=== PATIENT | female | born 1945 | race Caucasian/White ===

== ENCOUNTER 2016-07-06 21:03 | Emergency (ER) | payer MEDICARE, OTHER ==
[~2016-07-06] VITALS: Ht 167.6 cm; Wt 102.0 kg
[~2016-07-06 21:03] MED LIST: ASPI81TA82 PO; CEPH500C3 PO; LASI20TA PO; LISI-357 PO; MAGN400C2 PO; METO100T9 PO; SIMV40 PO; XANA0.5T PO; ZEGE20CA PO
[2016-07-06 21:15] VITALS: BP 105/79; PULSE 93; RESP 20; TEMP 98.3; O2SAT 93
[2016-07-06] MEDS ORDERED: SIMV40TA PO (21:26)
[2016-07-06] MEDS ORDERED: MAGN400T2 PO (21:26)
[2016-07-06] MEDS ORDERED: ASPI81CH37 CHEW (21:26)
[2016-07-06] MEDS ORDERED: ALPR.5 PO (21:26)
[2016-07-06] MEDS ORDERED: METO50TA11 PO (21:26)
[2016-07-06] MEDS ORDERED: LISI-519 PO (21:26)
[2016-07-06] MEDS ORDERED: OMEP20TA PO (21:26)
[2016-07-06] MEDS ORDERED: FURO1TAB62 PO (21:26)
[2016-07-06] MEDS ORDERED: KETOROLAC TROMETHAMINE 60 MG/2 ML (IM) VIAL IM ONE (21:30)
--- NOTE | 2016-07-06 21:36 | PD ---
HPI Chief Complaint: Fall Time Seen by Provider: 21:30 Travel History International Travel<30 days: Yes Contact w/Intl Traveler<30days: Yes Name of Country Traveled to: [place] Traveled to known affect area: No History of Present Illness HPI 70-year-old female that presents to the ED for evaluation of fall today. Per patient she tripped and fell in the house. Per patient she landed on her head and in her right knee. She was able to ambulate afterwards with some limping. Per patient she was concerned because she's been having more and more difficulty with movement of the right knee. Per patient she does have a little swelling. She does have a history of a ligamental surgical repair years ago. She states that the pain is mostly on the right knee. She takes aspirin. She did not lose consciousness. She does have an abrasion to her left eye. No blurry vision or double vision. Per patient the pain is 5 out of 10. She has no allergies to medication. She has not seen anybody for this. Injury occurred about 4-5 hours ago. Family is concerned because she wasn't able to walk as well after this. Denies any back pain or neck pain. No injuries to the left upper or lower extremity. No injuries to the right upper extremity. No hip pain. PFSH Past Medical History Heart Rhythm Problems: Yes Cardiovascular Problems: Yes (chf) High Cholesterol: Yes Congestive Heart Failure: Yes Hypertension: Yes Musculoskeletal: Yes (right knee) Tetanus Vaccination: > 5 Years Influenza Vaccination: Yes ?: Not Social History Alcohol Use: Yes Tobacco Use: No (former) Substance Use: No Allergies-Medications (Allergen,Severity, Reaction): Coded Allergies: No Known Allergies (Unverified , 07/06/16) Reported Meds & Prescriptions Reported Meds & Active Scripts Active Walker Rolling/GetGo (Device) 1 Mis Mis 1 Ea .ROUTE DIRECTED Diclofenac Sodium DR (Diclofenac Sodium) 75 Mg Tabdr 75 Mg PO BID PRN Reported Simvastatin 40 Mg Tab 40 Mg PO HS Omeprazole 20 Mg Tab 20 Mg PO DAILY Metoprolol Succinate ER 24 HR (Metoprolol Succinate) 50 Mg Tab 75 Mg PO BID Lisinopril 5 Mg Tab 5 Mg PO DAILY Magnesium Oxide 400 Mg Tab 400 Mg PO DIRECTED Lasix (Furosemide) 20 Mg Tab 20 Mg PO DAILY Aspirin Low Dose (Aspirin) 81 Mg Chew 81 Mg CHEW DAILY Xanax (Alprazolam) 0.5 Mg Tab 0.5 Mg PO BID PRN Review of Systems Except as stated in HPI: all other systems reviewed are Neg Physical Exam Narrative GENERAL: SKIN: Warm and dry. HEAD: Atraumatic. Normocephalic. EYES: Pupils equal and round 4 mm reactive to light and accommodation. No scleral icterus. No injection or drainage. ENT: No nasal bleeding or discharge. Mucous membranes pink and moist. Tongue is midline. No uvula deviation. NECK: Trachea midline. No JVD. CARDIOVASCULAR: Regular rate and rhythm. No murmurs, S3, S4. RESPIRATORY: No accessory muscle use. Clear to auscultation. Breath sounds equal bilaterally. GASTROINTESTINAL: Abdomen soft, non-tender, nondistended. Hepatic and splenic margins not palpable. MUSCULOSKELETAL: Extremities without clubbing, cyanosis, or edema. No obvious deformities. Patient does have surgical scars noted on the right knee that appear to be old and healed. Patient does have significant swelling noted on the right knee compared to the left lung. Able to flex and extend it with minimal difficulty. Bruising noted especially on the lateral aspect of the knee. 2+ pulses bilaterally. Patient has no cervical, thoracic, lumbar spine tenderness to palpation. Full range of motion of the entire left lower and right upper extremities. Patient does have superficial abrasions to the left eyebrow and left cheek. Less than 1 cm in diameter. Patient has full range of motion of the ankle and feet bilaterally as well as the hips bilaterally. NEUROLOGICAL: Awake and alert. No obvious cranial nerve deficits. Motor grossly within normal limits. Five out of 5 muscle strength in the arms and legs. Normal speech. PSYCHIATRIC: Appropriate mood and affect; insight and judgment normal. Data Data Last Documented VS Vital Signs Date Time Temp Pulse Resp B/P Pulse Ox O2 Delivery O2 Flow Rate FiO2 07/06/16 21:27 07/06/16 21:15 [address] Brain W/O Iv Contrast(Rout) (07/06/16 21:24) Knee, Complete (4vws) (07/06/16 21:24) Ice/Cold Pack (07/06/16 21:24) Ketorolac Inj (Toradol Inj) (07/06/16 21:30) Splint Or Brace Apply/Monitor (07/06/16 22:04) [facility] Medical Decision Making Medical Screen Exam Complete: Yes Emergency Medical Condition: Yes Medical Record Reviewed: Yes Interpretation(s) Last Impressions Knee X-Ray 07/06/162123 Signed Impressions: Service Date/Time: Wednesday, July 06, 2016 21:39 - CONCLUSION: Large hematoma and no definite fracture. Aldo Dixon MD Head CT 07/06/162123 Signed Impressions: Service Date/Time: Wednesday, July 06, 2016 21:43 - CONCLUSION: Slight atrophic and small vessel ischemic changes without any evidence for acute hemorrhage or mass effect. Aldo Dixon MD Differential Diagnosis Fracture versus sprain versus strain versus contusion versus hematoma versus ligamental injury Narrative Course 70-year-old female that presents to the ED for evaluation of right knee pain as well as head injury after fall today. Patient was properly examined and was found to have signs and symptoms consistent with appears to be fall. X-rays and imaging ordered. X-rays and imaging showed large hematoma no surgery tenderness but no sign of acute disease. Case was discussed in my attending Dr. Aguilar . Agrees with plan. This time I recommend close follow with orthopedic surgeon. Ice or warm compresses. Patient was given a prescription for diclofenac sodium to help with the swelling. Patient was told that unfortunately this fluid will likely have to be absorbed by the body and this will take time. Patient was told to watch for signs of infection. Any worsening pain or swelling she is to come back. Close follow with orthopedic surgeon. See ED if worsening symptoms. Family agrees with plan Diagnosis Primary Impression: Traumatic hematoma of right knee Qualified Code: S80.01XA - Traumatic hematoma of right knee, initial encounter Additional Impression: Head injury Qualified Code: S09.90XA - Head injury, initial encounter Referrals: Ricky Rondon Jr., MD Patient Instructions: General Instructions Additional Instructions: Take medications as prescribed. Follow-up with PCP. See ED for any worsening symptoms. Do not drink or drive while taking pain medication. Apply ice or heat as needed for pain Med/Other Pt SpecificInfo: Prescription(s) given Scripts Walker Rolling/GetGo 1 Mis Mis #1 Ea .route As Directed Prov:Nas Oropeza MD 07/06/[address] 75 Mg Tabdr75 Mg PO BID PRN (PAIN SCALE 1 TO 10) #20 TAB Prov:Nas Oropeza MD 07/06/16 Disposition: 01 DISCHARGE HOME Condition: Stable Gary Abbott Jul 06, 2016 21:36
--- NOTE | 2016-07-06 21:57 | RADHPO ---
EXAM DATE/TIME: 07/06/2016 21:39 [facility] COMPARISON: No previous studies available for comparison. INDICATIONS : Right knee pain, fall today. MEDICAL HISTORY : None. SURGICAL HISTORY : None. ENCOUNTER: Initial ACUITY: 1 day PAIN SCORE: 6/10 LOCATION: Right knee. FINDINGS: No definite fractures, dislocations, lytic, or sclerotic lesions are seen. Slight tricompartment oste oarthritis is seen with a small joint effusion. Huge hematoma is present in the prepatellar location subcutaneous tissue measuring 9.8 cm in size. CONCLUSION: Large hematoma and no definite fracture. Aldo Dixon MD on July 06, 2016 at 21:55 Board Certified Radiologist. This report was verified electronically.
--- NOTE | 2016-07-06 21:59 | RADHPO ---
EXAM DATE/TIME: 07/06/2016 21:43 [facility] COMPARISON: No previous studies available for comparison. INDICATIONS : Fall with injury to head. RADIATION DOSE: 55.92 CTDIvol (mGy) MEDICAL HISTORY : Hypertension. Congestive heart failure. SURGICAL HISTORY : Pacemaker. ENCOUNTER: Initial ACUITY: 1 day PAIN SCALE: 2/10 LOCATION: Left frontal orbit. TECHNIQUE: Multiple contiguous axial images were obtained of the head. Using automated exposure control and adj ustment of the mA and/or kV according to patient size, radiation dose was kept as low as reasonably a chievable to obtain optimal diagnostic quality images. FINDINGS: There is no evidence for intracranial hemorrhage, mass effect, mass lesions, or edema. The visualize d bony structures appear intact. Slight degree of brain atrophy is seen. Slight periventricular whit e matter changes are seen nonspecific mostly consistent with chronic small vessel ischemic changes. There are no signs of acute infarction for technique. CONCLUSION: Slight atrophic and small vessel ischemic changes without any evidence for acute hemorrhage or mass effect. Aldo Dixon MD on July 06, 2016 at 21:56 Board Certified Radiologist. This report was verified electronically.
[2016-07-06] MEDS ORDERED: DICL75TA PO (22:02)
[2016-07-06] MEDS ORDERED: GETGO ROLLING W1 MI1 (22:03)
== END 2016-07-06 22:27 | disposition home or self-care (01) ==
LOC: PHEFT 21:03
DX: S80.01XA Contusion of right knee, initial encounter (principal); S09.90XA Unspecified injury of head, initial encounter; S00.81XA Abrasion of other part of head, initial encounter; E78.00 Pure hypercholesterolemia, unspecified; I10 Essential (primary) hypertension; I50.9 Heart failure, unspecified; Z79.82 Long term (current) use of aspirin; W01.0XXA Fall on same level from slipping, tripping and stumbling without subsequent striking against object, initial encounter; Y92.019 Unspecified place in single-family (private) house as the place of occurrence of the external cause; Y93.9 Activity, unspecified; Y99.9 Unspecified external cause status
CPT/HCPCS: 70450; 73564; 96372; 99284; J1885; L1830